=== PATIENT | female | born 2000 | race Hispanic/Latino ===

== ENCOUNTER 2021-06-30 01:38 | Emergency (ER) | payer OTHER ==
--- NOTE | 2021-06-30 02:24 | ER ---
Nurse's Notes [facility] Name: Mckenzie Uriostegui Age: 21 yrs Sex: Female : 2000 Arrival Date: 06/30/2021 Time: 01:41 Bed Waiting Private MD: Diagnosis: Presentation: 06/30 01:56 Chief complaint: Patient states: Slipped on tile floor, dislocated left knee, reports lp1 hx of dislocation to left knee. 01:56 Acuity: MUNDO 4 lp1 01:56 Method Of Arrival: Wheelchair lp1 02:02 Coronavirus screen: Client denies travel out of the [place] in the last 14 days. At this lp1 time, the client does not indicate any symptoms associated with coronavirus-19. Ebola Screen: No symptoms or risks identified at this time. Initial Sepsis Screen: Does the patient meet any 2 criteria? No. Patient's initial sepsis screen is negative. Does the patient have a suspected source of infection? No. Patient's initial sepsis screen is negative. Risk Assessment: Do you want to hurt yourself or someone else? Patient reports no desire to harm self or others. Onset of symptoms was June 29, 2021 at 23:00. Triage Assessment: 02:05 General: Appears in no apparent distress. Behavior is calm, cooperative. Pain: lp1 Complains of pain in left knee. Neuro: Level of Consciousness is awake, alert, obeys commands. Respiratory: Respiratory effort is even, unlabored. Derm: Skin is pink, warm \T\ dry. Musculoskeletal: Circulation, motion, and sensation intact. Reports pain in left knee. Historical: - Allergies: 02:00 PENICILLINS; lp1 - Home Meds: 02:01 Vitamin Oral [Active]; lp1 - PMHx: 02:01 None; lp1 - PSHx: 02:01 None; lp1 - Immunization history:: Adult Immunizations up to date. - Social history:: Smoking status: Patient denies any tobacco usage or history of. Screenin:01 Abuse screen: Denies threats or abuse. Denies injuries from another. Nutritional lp1 screening: No deficits noted. Tuberculosis screening: No symptoms or risk factors identified. Fall Risk None identified. Assessment: 02:20 Reassessment: Patient reports she cannot wait because her ride has to go home. lp1 Vital Signs: 02:02 BP 107 / 73; Pulse 96; Resp 16; Temp 98(TE); Pulse Ox 99% on R/A; Weight 95.71 kg (R); lp1 Height 5 ft. 4 in. (162.56 cm); Pain 8/10; 02:02 Body Mass Index 36.22 (95.71 kg, 162.56 cm) lp1 ED Course: 01:41 Patient arrived in ED. bp1 01:57 Triage completed. lp1 02:01 Arm band placed on. lp1 02:03 Maury Wakefield PA is PHCP. cp 02:03 Maury Rodriguez MD is Attending Physician. cp Administered Medications: No medications were administered Outcome: 02:23 Patient left the ED. lp1 Signatures: Amanda Rosario RN RN lp1 Maury Wakefield PA PA cp Julissa Pringle bp1
--- NOTE | 2021-06-30 02:24 | EDPHYS ---
Physician Documentation [facility] Name: Mckenzie Uriostegui Age: 21 yrs Sex: Female : 2000 Arrival Date: 06/30/2021 Time: 01:41 Bed Waiting Private MD: EMILY Physician Maury Rodriguez HPI: 06/30 02:00 This 21 yrs old Female presents to ER via Wheelchair with complaints of Fall cp Injury, Knee Injury. 02:00 Details of fall: The patient fell from an upright position, while walking. Onset: The cp symptoms/episode began/occurred last night. Associated injuries: The patient sustained left knee, painful injury. Historical: - Allergies: 02:00 PENICILLINS; lp1 - Home Meds: 02:01 Vitamin Oral [Active]; lp1 - PMHx: 02:01 None; lp1 - PSHx: 02:01 None; lp1 - Immunization history:: Adult Immunizations up to date. - Social history:: Smoking status: Patient denies any tobacco usage or history of. ROS: 02:05 MS/extremity: Positive for injury or acute deformity, pain, of the left knee, Negative cp for decreased range of motion, paresthesias. 02:05 Constitutional: Negative for body aches, chills, fever, poor PO intake. cp 02:05 Respiratory: Negative for cough, shortness of breath. 02:05 Abdomen/GI: Negative for abdominal pain, nausea, vomiting, and diarrhea. 02:05 Back: Negative for pain at rest, pain with movement. 02:05 Neuro: Negative for headache, syncope, weakness. 02:05 All other systems are negative. Exam: 02:08 Head/Face: Normocephalic, atraumatic. cp 02:08 Constitutional: The patient appears in no acute distress, alert, awake, comfortable, well developed, well nourished. 02:08 Cardiovascular: Rate: normal. 02:08 Respiratory: the patient does not display signs of respiratory distress, Respirations: normal, no use of accessory muscles. 02:08 Musculoskeletal/extremity: Extremities: grossly normal except: noted in the anterior aspect left knee: pain, swelling, tenderness, There is no evidence of decreased ROM, deformity, ROM: limited passive range of motion due to pain, in the left knee, Perfusion: the extremity is normally perfused throughout. Vital Signs: 02:02 BP 107 / 73; Pulse 96; Resp 16; Temp 98(TE); Pulse Ox 99% on R/A; Weight 95.71 kg (R); lp1 Height 5 ft. 4 in. (162.56 cm); Pain 8/10; 02:02 Body Mass Index 36.22 (95.71 kg, 162.56 cm) lp1 MDM: 02:10 Data reviewed: vital signs, nurses notes. cp 02:23 Medical screening is not applicable. lp1 Administered Medications: No medications were administered Disposition: 07:47 Co-signature as Attending Physician, Maury Rodriguez MD I agree with the assessment and nita plan of care. Disposition Summary: 06/30/21 02:23 Eloped Disposition: after being seen by provider lp1 Reason: wait time lp1 Signatures: Dispatcher [employer] Maury Todd MD MD cha Pena, Laura, RN RN lp1 Maury Wakefield PA PA cp Corrections: (The following items were deleted from the chart) 02:15 02:02 Knee Left 3 View+RAD.RAD.BRZ ordered. EDKS EDMS
[2021-06-30 02:37] VITALS: BP 107/73; TEMP 98; O2SAT 99
== END 2021-06-30 02:23 | disposition left against medical advice (07) ==
LOC: ER 01:38
DX: M25.562 Pain in left knee (principal); W19.XXXA Unspecified fall, initial encounter; Y93.01 Activity, walking, marching and hiking; Z88.0 Allergy status to penicillin
CPT/HCPCS: 99281

== ENCOUNTER 2021-08-08 10:30 | Inpatient (IN) | payer OTHER ==
[2021-08-09] MEDS ORDERED: BUTORPHANOL 1 MG/ML INJ IV PRN (15:02)
[2021-08-09] MEDS ORDERED: Ringers Lactate 1,000 ML IV PRN (15:02)
[2021-08-09] MEDS ORDERED: METHYLERGONOVINE 0.2MG/ML AMP IM PRN (15:02)
[2021-08-09] MEDS ORDERED: PROMETHAZINE INJ 25 MG/ML AMP IM PRN ×2 (15:02)
[2021-08-09] MEDS ORDERED: miSOPROStoL 100 MCG TAB VAG PRN (15:50)
[2021-08-09] MEDS ORDERED: Ringers Lactate 1,000 ML IV SCH (16:00)
[2021-08-09] MEDS ORDERED: miSOPROStoL 100 MCG TAB ONE (16:07)
[2021-08-09 16:48] LABS: Hematocrit 36.5 % (36.0-45.0); RBC Red Blood Cell Count 3.83 M/uL (3.86-4.86)
[2021-08-09 16:49] LABS: Absolute Lymphocytes (CBC) 1.5 K/uL (0.7-4.9); Basophils % 0.2 % (0-1.3); Lymphocytes % 13.1 % (15.3-44.8); MPV 13.7 fL (7.6-11.3)
[2021-08-09] MEDS ORDERED: CARBOPROST TROME 250 MCG/ML IM ONE (17:02)
[2021-08-09 17:38] VITALS: BMI 35.9
[2021-08-09 17:52] LABS: Urine Appearance CLOUDY (Clear); Urine Bilirubin NEGATIVE (Negative); Urine Blood NEGATIVE (Negative); Urine Color YELLOW (Yellow); Urine Glucose NEGATIVE (Negative); Urine Microscopic Reflex ORDER UMIC; Urine Protein NEGATIVE (Negative); Urine Specific Gravity 1.015 (1.005-1.030); Urine Urobilinogen 0.2 mg/dL (0.2-1.0)
[2021-08-09 18:20] LABS: Urine Bacteria <20 /HPF (<20); Urine RBC <5 /HPF (NONE SEEN)
--- NOTE | 2021-08-09 19:19 | PREOPHP ---
Date of Admission: 08/09/2021 History Of Present Illness: This is a 21-year-old, primigravida, at 40 weeks 3 days, for Cytotec ind uction. This has been thoroughly discussed in the office prior to admission on several times. The p atmarlen has a history of having had COVID during the . She is Rh positive, immune to Rubella . Negative strep screen. Family History: Noncontributory to the present. Medical Condition: The patient has no serious illnesses. Medications: She is taking vitamins and iron prior to admission. Social History: She does not smoke. Admits to marijuana use during the , but otherwise no drugs. Allergies: ALLERGIC TO PENICILLIN. Physical Examination: General: The patient is 21 years old. HEENT: Clear. Pupils equal, round, and reactive to light and accommodation. Conjunctivae well perf used. No oral, lingual, or buccal lesions. Chest and Lungs: Clear. Heart: Without murmurs, thrills, heaves, or rubs. Breasts: Without masses on previous visits. Abdomen: Term size. Baby is vertex. Cervix is 1.5 cm, 50% effaced, but still posterior. Baby is w ell applied at about -1 station. Assessment And Plan: Full labor talk. Given 50 mcg of Cytotec inserted 6 hours now. We will decide whether she needs any more to stimulator labor whether 1 will be sufficient. She knows she is to te ll the nurses if she ruptures membranes and she knows that she can have pain medicines whenever she gets to the point where she really needs them. SAMANTHA/QASIM Voice ID: [id number]
[2021-08-09] MEDS ORDERED: 0.2% ROPIVACAINE (200 MG/100 ML) BAG EP ONE (22:35)
[2021-08-09] MEDS ORDERED: ROPIVACAINE HCL/PF 0.2% 10 ML VIAL EP ONE (22:36)
[2021-08-09] MEDS ORDERED: FENTANYL CITR 100 MCG/2 ML IV ONE (22:36)
[2021-08-10] MEDS ORDERED: FENTANYL CITR 100 MCG/2 ML ONE (00:17)
[2021-08-10] MEDS ORDERED: METHYLERGONOVINE 0.2MG/ML AMP IM ONE (03:17)
[2021-08-10] MEDS ORDERED: CARBOPROST TROME 250 MCG/ML IM ONE (03:18)
[2021-08-10] MEDS ORDERED: OXYTOCIN/LR 20 UNIT/1,000 ML BAG IV ONE (03:20)
[2021-08-10] MEDS ORDERED: IBUPROFEN 200 MG TAB PO PRN (04:21)
[2021-08-10] MEDS ORDERED: DOCUSATE NA/SENNA CONC 1 TAB PO PRN (04:21)
[2021-08-10] MEDS ORDERED: Oxycodone HCl/Acetaminophen 1 TAB TAB PO PRN ×2 (04:21→04:24)
[2021-08-10] MEDS ORDERED: ACETAMINOPHEN 500 MG TAB PO PRN (04:21)
[2021-08-10] MEDS ORDERED: LOPERAMIDE HCL 2 MG CAPSULE ONE (05:32)
--- NOTE | 2021-08-10 05:43 | OP ---
Surgeon: Mehdi Thomas MD Description Of Procedure: A 21-year-old primigravida, 40 weeks 4 days, had Cytotec 50 mcg inserted y afternoon, went to an active labor. Experienced spontaneous rupture of membranes. Clear fl uid. Requested and received epidural anesthesia, went to complete. Second stage of only 5 to 10 min utes or less. Spontaneous vaginal delivery of an 8 pounds 8 ounces male , Apgars 9 and 10. Se cond-degree midline laceration, simulating episiotomy, repaired with 2-0 chromic. Schultze delivery of the placenta, inspected and noted to be intact and normal. Uterus contracted down well with IV dr ip Pitocin and massage. Estimated blood loss 400 cc. Patient is being watched carefully. If she pa sses any clots, we will give her Hemabate. Blood pressure slightly elevated, but protein negative, r eflexes negative, edema negative, and with the epidural, the blood pressures went to normal. I think that was just a reflection of discomfort. As far as elevated blood pressures, I do doubt and think the patient has preeclampsia. Strep negative. COVID negative. Rh positive. Immune to Rubella. To lerated all procedures well. Final Diagnoses: Term intrauterine at 40 weeks 4 days. Cytotec for labor induction. Epid ural anesthesia. Vaginal delivery. SAMANTHA/QASIM Voice ID: [id number] Report ID: [id number]
[2021-08-10 06:04] LABS: RPR (Rapid Plasma Reagin) NON-REACT (NON-REACT)
[2021-08-10] MEDS ORDERED: HYDRALAZINE HCL 20 MG/ML VIAL IV ONE (06:42)
[2021-08-11 07:50] VITALS: BP 128/78; TEMP 97.8
== END 2021-08-11 11:35 | disposition home or self-care (01) | DRG 806 ==
LOC: EDSTATUS 15:05 → 2ND-WC 08-09 15:05
PROVIDERS: ADMIT Specialist; ATTEND Specialist
PROC: 10E0XZZ Delivery of Products of Conception, External Approach (ICD-10-PCS; principal; 2021-08-10)
PROC: 0KQM0ZZ Repair Perineum Muscle, Open Approach (ICD-10-PCS; 2021-08-10)
PROC: 3E0DXGC Introduction of Other Therapeutic Substance into Mouth and Pharynx, External Approach (ICD-10-PCS; 2021-08-10)
DX: O70.1 Second degree perineal laceration during delivery (principal); O99.323 Drug use complicating pregnancy, third trimester; Z37.0 Single live birth; F12.90 Cannabis use, unspecified, uncomplicated; Z3A.40 40 weeks gestation of pregnancy; Z80.0 Family history of malignant neoplasm of digestive organs; Z20.822 Contact with and (suspected) exposure to COVID-19; Z86.16 Personal history of COVID-19
CPT/HCPCS: 36415; 81003; 81015; 85025; 86592; 86850; 86900; 86901; 87340; J0595; J2210; J2550; J2590; J2795; J3010; J7120; U0003

== ENCOUNTER 2023-10-08 10:45 | Emergency (ER) | payer OTHER ==
--- OUTSIDE RECORDS SUMMARY | 2023-10-08 10:48 | XMS REPORT | Continuity of Care Document ---
:2000 Author Organization [facility] t Address [address] [facility] [address] [place] [id number] Care Team Providers Name Role Phone EMELINA READ Primary Care Physician Unavailable [email or web address] Attending Clinician Unavailable EMELINA READ Attending Clinician Unavailable Emelina Aranda Attending Clinician [email or web address] Admitting Clinician Unavailable Payers Payer Name Policy Type Policy Number Effective Date Expiration Date S su[place] [employer] [id number] 2023 00:00:00 Problems This patient has no known problems. Allergies, Adverse Reactions, Alerts Allergy Allergy Status Severity Reaction(s) Onset Inactive Treating Comm ents Source Name Type Date Date Clinician NO KNOWN Drug Active Univers ALLERGIE Class ity of S [facility] Social History Social Habit Start Date Stop Date Quantity Comments Source History of Cigarette Smoker Universi ty of tobacco use [facility] Tobacco use and 2023-03-15 2023-03-15 Smokeless tobacco Un iversity of exposure 00:00:00 00:00:00 non-user [facility] Exposure to 2023-03-04 2023-03-14 Not sure University SARS-CoV-2 00:00:00 13:48:00 [facility] (event) [place] Sex Assigned At [birth year] Universit y of 00:00:00 00:00:00 [facility] Smoking Status Start Date Stop Date Source Occasional tobacco smoker 2023-03-15 00:00:00 Un iversity of [facility] Medications Ordered Filled Start Stop Current Ordering Indication Dosage Frequency Signature Comments Components Source Medication Medication Date Date Medication? Clinician (SIG) Name Name azelastine Yes [id number] 1{spray Use 1 Univers 137 mcg 4-28 } [place] in ity of (0.1 %) 00:00: each [place] nasal spray 00 nostril in [place] the [place] morning and 1 [place] in the evening. Use in each nostril as directed azelastine Yes [id number] 1{spray Use 1 Univers 137 mcg 4-28 } [place] in ity of (0.1 %) 00:00: each [place] [facility] 1 [place] in the evening. Use in each nostril as directed Vital Signs Vital Name Observation Time Observation Value Comments Source Systolic blood 2023-03-15 20:47:00 110 mm[Hg] [facility] Diastolic blood 2023-03-15 20:47:00 76 mm[Hg] [facility] Body temperature 2023-03-15 20:47:00 37.11 [facility] Body height 2023-03-15 20:47:00 162.6 cm [facility] Body weight 2023-03-15 20:47:00 81.149 kg [facility] BMI 2023-03-15 20:47:00 30.71 kg/m2 [facility] Oxygen saturation in 2023-03-15 20:47:00 97 /min [facility] blood by [facility] Pulse oximetry Branch Procedures Procedure Date / Time Performed Performing Clinician Sourc e POCT MOLECULAR STREP 2023-03-15 21:41:00 Emelina Read [facility] Encounters Start End Encounter Admission Attending Care Care Encounter Source Date/Time Date/Time Type Type Clinicians Facility Department ID 2023-09-18 2023-09-18 Outpatient GC_GCBZW_Ka PRIV PRIV [id number] [facility] 00:00:00 00:00:00 yasir_Kallie [id number] Medic al 2023-03-28 2023-03-28 Outpatient Odette READ [facility] [id number] Univers 07:30:00 07:30:00 EMELINA beck [facility] 2023-03-15 2023-03-15 Outpatient R RORO, [facility] [id number] Univers 16:00:00 16:39:03 EMELINA beck [facility] 2023-03-15 2023-03-15 [facility] [id number] Univers 16:00:00 16:39:03 Visit Emelina Galicia [facility] [id number] i ty of [place]AM[place] [id number] [place] as GEOFFREY?BLEA [id number] [address] OFFICE BUILDING Results Test Description Test Time Test Comments Results Result Comments Source POCT MOLECULAR STREP 2023-03-15 21:48:14 Test Item Value Reference Range Interpretation Comme nts POCT Molecular Strep (test code = 99403-6) Negative Negative Lab Interpretation (test code = 74800-2) [id number] 21:48:14 Test Item Value Reference Range Interpretation Comments POCT Molecular Strep (test code = Negative Negative 89280-6) Lab Interpretation (test code = Normal 74723-1) [facility]
[2023-10-08] MEDS ORDERED: NA CHLORIDE 0.9% 1,000 ML ONE (13:02)
[2023-10-08 13:17] LABS: Specific Gravity 1.006 (1.005-1.030)
[2023-10-08 13:19] LABS: Absolute Lymphocytes (CBC) 1.6 K/uL (0.7-4.9); Hematocrit 39.4 % (36.0-45.0); Lymphocytes % 29.3 % (15.3-44.8); MCV 96.7 fL (80-100); MPV 10.8 fL (7.6-11.3); Platelets 209 thou/uL (152-406); RBC Red Blood Cell Count 4.07 M/uL (3.86-4.86)
[2023-10-08 13:20] LABS: Specific Gravity 1.006 (1.005-1.030); Urine Bacteria None Seen /HPF (<20); Urine Bilirubin NEGATIVE (Negative); Urine Blood Negative (Negative); Urine Clarity Turbid (Clear); Urine Color Colorless (Yellow); Urine Glucose NEGATIVE (Negative); Urine Protein NEGATIVE (Negative); Urine RBC <5 /HPF (None Seen); Urine Urobilinogen Normal (Normal)
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
[2023-10-08 13:40] LABS: Albumin 3.6 g/dL (3.4-5.0); Bilirubin Total 0.6 mg/dL (0.2-1.0)
--- NOTE | 2023-10-08 13:56 | RAD REPORT ---
EXAM DESCRIPTION: CTStone Protocol - 10/08/2023 1:40 pm CLINICAL HISTORY: ABD PAIN COMPARISON: No comparisons TECHNIQUE: CT of the abdomen and pelvis was performed. All CT scans are performed using dose optimization technique as appropriate and may include automated exposure control or mA/KV adjustment according to patient size. FINDINGS: Lower chest: No acute abnormality. Liver: No acute abnormality or suspicious lesions. Biliary: No biliary ductal dilatation. Stomach: No significant focal abnormality. Duodenum: No significant focal abnormality. Pancreas: No significant abnormality. Spleen: No significant abnormality. Adrenal: No suspicious lesions. Kidney/ureter: No hydronephrosis. No renal calculi. Atrophic right kidney. Probable compensatory hype rtrophy of the left kidney. Several calcifications along the course of the left distal ureter which a re favored phleboliths. No ureteral calculus identified. Retroperitoneum: No retroperitoneal adenopathy. Vascular: No aneurysm. Bowel: No significant focal abnormality. Normal appendix. Peritoneum: No ascites or free air. Bladder: Grossly unremarkable. Reproductive: Retroverted uterus with IUD. Bones: No acute fracture. Other: n/a IMPRESSION: No acute intra-abdominal or pelvic finding. No renal or ureteral calculi identified. No hydronephrosis. Normal appendix.
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
[2023-10-08] MEDS ORDERED: KETOROLAC 30 MG/ML INJ ONE (14:02)
[2023-10-08 14:30] VITALS: TEMP 98.3; O2SAT 100
[2023-10-08 14:32] VITALS: BP 118/74
== END 2023-10-08 14:23 | disposition home or self-care (01) ==
LOC: ER 10:45
DX: S29.011A Strain of muscle and tendon of front wall of thorax, initial encounter (principal); S29.012A Strain of muscle and tendon of back wall of thorax, initial encounter; Y04.0XXA Assault by unarmed brawl or fight, initial encounter; W18.30XA Fall on same level, unspecified, initial encounter; F17.210 Nicotine dependence, cigarettes, uncomplicated; Z88.0 Allergy status to penicillin
CPT/HCPCS: 96361; 85025; 81001; 36415; 81025; 80053; 76377; 74176; 71046; 96374; 99284; J7030

== ENCOUNTER 2024-09-14 22:18 | Emergency (ER) | payer OTHER ==
--- OUTSIDE RECORDS SUMMARY | 2024-09-14 22:20 | XMS REPORT | Continuity of Care Document ---
Author Name Unknown Address [address] [place] [address] [facility] thconnect Address [address] [place] [address] Care Team Providers Care Signal Worker Helper Name Role Phone EMELINA READ Primary Care Physician Dennisa janessa [email or web address] Attending Clinician Unavaila EMELINA Golden Attending Clinician Emelina Montalvo Attending Clinician [phone] [email or web address] Admitting Clinician Unavaila ble Payers Payer Name Policy Type Policy Number Effective Date Expirati on Date Source [place] [employer] [id number] 2023 00:00:00 Allergies, Adverse Reactions, Alerts Allergy Name Allergy Type Status Severity Reaction(s) Onset Date Inactive Date Treating Clinician Comments Source NO KNOWN ALLERGIE S Drug Class Active [facility] Social History Social Habit Start Date Stop Date Quantity Comments Source History of tobacco use Cigarette Smoker [facility] Tobacco use and exposure 2023-03-15 00:00:00 2023-03-15 00:00:00 Smokeless tobacco non-user [facility] Exposure to SARS-CoV-2 (event) 2023-03-04 00:00:00 2023-03-14 13:48:00 Not sure [facility] Sex Assigned At 2000 00:00:00 2000 00:00:00 [facility] Smoking Status Start Date Stop Date Source Occasional tobacco smoker 2023-03-15 00:00:00 [facility] Medications Ordered Medication Name Filled Medication Name Start Date Stop Date Current Medication? Ordering Clinician Indication Dosage Frequency Signature (SIG) Comments Components Source azelastine 137 mcg (0.1 %) nasal spray 03-15 00:00: 00 Yes [id number] 1{spray } Use 1 Trimble in each nostril in the morning and 1 Trimble in the evening. Use in each nostril as directed [facility] Vital Signs Vital Name Observation Time Observation Value Comments [facility] Systolic blood pressure 2023-03-15 20:47:00 110 mm[Hg] [facility] Diastolic blood pressure 2023-03-15 20:47:00 76 mm[Hg] [facility] Body temperature 2023-03-15 20:47:00 37.11 Faith [facility] Body height 2023-03-15 20:47:00 162.6 cm [facility] Body weight 2023-03-15 20:47:00 81.149 kg [facility] BMI 2023-03-15 20:47:00 30.71 kg/m2 [facility] Oxygen saturation in Arterial blood by Pulse oximetry 2023-03-15 20:47:00 97 /min [facility] Procedures Procedure Date / Time Performed Performing Clinicia n Source POCT MOLECULAR STREP 2023-03-15 21:41:00 Marsha Read [facility] Encounters Start Date/Time End Date/Time Encounter Type Admission Type Attending Clinicians Care Facility Care Department Encounter ID Source 2023-09-18 00:00:00 2023-09-18 00:00:00 Outpatient [email or web address] [facility] [id number] [facility] 2023-03-28 07:30:00 2023-03-28 07:30:00 Outpatient EMELINA [facility] [id number] [facility] 2023-03-15 16:00:00 2023-03-15 16:39:03 Outpatient EMELINA [facility]ENNETT [facility] [id number] [facility] 2023-03-15 16:00:00 2023-03-15 16:39:03 Office Visit Emelina Read [facility] [id number] [facility] Results Test Description Test Time Test Comments Results Result Co mments [facility] [id number] 21:48:14* Test Item Value Reference Range Interpretation Comme nts POCT Molecular Strep (test c ode = 29634-4) Negative Negative Lab Interpretation (test cod e = 82912-7) Normal [facility]
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
[2024-09-14] MEDS ORDERED: HYDROCODONE/APAP 5/325 MG TAB ONE (23:53)
[2024-09-14] MEDS ORDERED: IBUPROFEN 400 MG TAB ONE (23:53)
[2024-09-15 03:47] VITALS: BP 107/60; TEMP 98.4; O2SAT 100
== END 2024-09-15 | disposition home or self-care (01) ==
LOC: ER 22:18
DX: T24.211A Burn of second degree of right thigh, initial encounter (principal)
CPT/HCPCS: 99283